=== PATIENT | male | born 1960 | race Caucasian/White ===

== ENCOUNTER 2019-12-17 21:35 | Inpatient (IN) | payer OTHER, SELFPAY ==
[~2019-12-17] VITALS: Ht 170.2 cm; Wt 95.3 kg
[2019-12-17 21:42] VITALS: BP 149/75
--- NOTE | 2019-12-17 21:47 | NUR ---
Triaged and awaiting MSE in tent.
--- NOTE | 2019-12-17 21:51 | NUR ---
PT AMBULATED TO BED 10 WITH STEADY GAIT
--- NOTE | 2019-12-17 22:10 | NUR ---
59 year old male presents to the emergency department with c/o sob, productive moist cough, sternal chest pain, myalgia, headache, n/v/d x 1 week. states that tylenol does help with the pain. 02sat 93% at triage. states exposed to a family member who tested positive for COVID. Work of breathing observed. Respirations in the low 30s. Crackles heard on bilateral bases. heart sounds even and regular. s1s2 present throughout. abdomen soft and nontender. hyperactive bowel sounds on all four quadrants. no other s/sx observed. WILMAR Guerrero made aware of pt status. Awaiting MSE. Pt placed on cardiac monitoring and pulse oximetry monitoring. Provided 3LPM oxygen via n/c and now saturations 96-97%. safety precautions in place with HOB elevated and bed lowest and locked, rails x 2. placed in isolation room bed 10 for PUI. pmhx: braulio umana
--- NOTE | 2019-12-17 22:28 | NUR ---
XRAY AT BEDSIDE
[2019-12-17 22:30] LABS: BASOPHILS % (AUTO) 0.3 % (0.0-2.0); EOSINOPHILS % (AUTO) 0.1 % (0.0-4.0); HEMATOCRIT 44.9 % (36-52); HEMOGLOBIN 15.4 g/dL (12.0-18.0); LYMPHOCYTES # (AUTO) 1.4 K/uL (2.0-11.5); LYMPHOCYTES % (AUTO) 16.2 % (20.5-51.1); MEAN CORPUSCULAR HEMOGLOBIN 29 pg (27-31); MEAN CORPUSCULAR HGB CONC 34 g/dL (33-37); MEAN CORPUSCULAR VOLUME 84.1 fL (80-94); MONOCYTES # (AUTO) 0.6 K/uL (0.8-1.0); MONOCYTES % (AUTO) 6.8 % (1.7-9.3); NEUTROPHILS # (AUTO) 6.8 K/uL (1.8-7.7); NEUTROPHILS % (AUTO) 76.6 % (42.2-75.2); PLATELET COUNT (AUTO) 252 K/uL (140-450); RED BLOOD CELL COUNT(AUTO) 5.33 MIL/uL (4.20-6.10); WHITE BLOOD COUNT (AUTO) 8.9 K/uL (4.8-10.8)
[2019-12-17 22:46] LABS: C-REACTIVE PROTEIN QUANT 9.7 mg/dL (0.0-0.9)
[2019-12-17 22:52] LABS: ALBUMIN 3.3 g/dL (3.4-5.0); CARBON DIOXIDE 29.3 mmol/L (21-32); POTASSIUM 3.3 mmol/L (3.5-5.1); PROTHROMBIN TIME 9.3 secs (10.8-13.4); TOTAL BILIRUBIN 0.5 mg/dL (0.0-1.0)
[2019-12-17 22:54] LABS: LACTATE DEHYDROGENASE 270 U/L (85-227)
[2019-12-17] MEDS ORDERED: ONDANSETRON 4 MG/2 ML VIAL ONE (23:39)
[2019-12-17] MEDS ORDERED: ONDANSETRON 4 MG ODT PO ONE (23:40)
[2019-12-18] MEDS ORDERED: ONDANSETRON 4 MG/2 ML VIAL IVP ONE
--- NOTE | 2019-12-18 | NUR ---
pt reports feeling of nausea and vomiting. requests for medications. MD Guerrero made aware.
--- NOTE | 2019-12-18 01:28 | NUR ---
pt asleep in bed, no further needs at this time. bed lowest and locked. pt connected to cardiac monitoring and pulse oximetry.
--- NOTE | 2019-12-18 02:50 | NUR ---
noticed decreasing oxygen saturation on 4LPM n/c to 93%. placed patient on simple mask 10LPM, saturations now at 98%.
--- NOTE | 2019-12-18 03:55 | NUR ---
pt asleep in bed. simple mask 10lpm. saturation 98%. no further needs at this time. call light within reach.
--- NOTE | 2019-12-18 05:56 | NUR ---
patient sleeping in bed. arousable by voice. no changes at this time.
[2019-12-18] MEDS ORDERED: APAP/BUTAL/CAFF 325/50/40 MG 1 TAB PO SCH (06:15)
[2019-12-18] MEDS ORDERED: DOCUSATE SODIUM 100 MG GELCAP PO PRN (07:25)
[2019-12-18] MEDS ORDERED: ONDANSETRON 4 MG/2 ML VIAL IVP PRN (07:25)
[2019-12-18] MEDS ORDERED: ACETAMINOPHEN 325 MG TAB PO PRN (07:25)
[2019-12-18] MEDS ORDERED: HYDROcodone/APAP 5/325 MG 1 TAB TAB PO PRN (07:25)
[2019-12-18] MEDS ORDERED: ALBUTEROL HFA MDI 90 MCG/ACTUATION 8 GM INH PRN (07:25)
--- NOTE | 2019-12-18 07:30 | NUR ---
PT RESTING IN BED, AOX4, ALL NEEDS MET AT THIS TIME. VSS ON BEDSIDE MONITOR.
--- NOTE | 2019-12-18 07:55 | NUR ---
RECEIVE REPORT FROM ER NURSE NILSON FOR CONTINUITY OF CARE, PT IS STABLE, PT AAOX4 ON 10L OXYGEN VIA MASK, PT HAS RIGHT FA 18G, PT IS AMBULATORY, SKIN INTACT, OBTAIN MRSA SWAB, INTRODUCE PT TO THE ROOM, BED IN LOW POSITION, SAFETY MEASURES IN PLACE, CALL LIGHT WITHIN REACH.
[2019-12-18 08:00] VITALS: BP 110/62
[2019-12-18] MEDS ORDERED: AZITHROMYCIN 250 MG TAB PO SCH (08:00)
--- NOTE | 2019-12-18 08:05 | NUR ---
Patient will be admitted to care of DR. WELLER. Admitted to TELE. Will go to room 115. Belongings list completed. Report to CHRIS LUNA.
[2019-12-18 08:24] LABS: BASOPHILS % (AUTO) 0.3 % (0.0-2.0); EOSINOPHILS % (AUTO) 0.1 % (0.0-4.0); HEMATOCRIT 41.6 % (36-52); LYMPHOCYTES # (AUTO) 1.4 K/uL (2.0-11.5); LYMPHOCYTES % (AUTO) 15.6 % (20.5-51.1); MEAN CORPUSCULAR HEMOGLOBIN 28 pg (27-31); MEAN CORPUSCULAR HGB CONC 34 g/dL (33-37); MEAN CORPUSCULAR VOLUME 83.8 fL (80-94); MONOCYTES # (AUTO) 0.5 K/uL (0.8-1.0); MONOCYTES % (AUTO) 5.8 % (1.7-9.3); NEUTROPHILS # (AUTO) 7.1 K/uL (1.8-7.7); NEUTROPHILS % (AUTO) 78.2 % (42.2-75.2); PLATELET COUNT (AUTO) 228 K/uL (140-450); RED BLOOD CELL COUNT(AUTO) 4.96 MIL/uL (4.20-6.10); RED CELL DISTRIBUTION WIDTH 13.8 % (11.6-13.7); WHITE BLOOD COUNT (AUTO) 9.1 K/uL (4.8-10.8)
[2019-12-18] MEDS: ENOXAPARIN 40 MG/0.4 ML SYR SUBQ SCH (08:31)
[2019-12-18] MEDS: ZINC SULF 220 MG CAP PO SCH ×2 (08:34→20:56)
[2019-12-18] MEDS: VITAMIN D 400 IU TAB PO SCH (08:35)
[2019-12-18] MEDS: NACL 0.9% 1,000 ML IV SCH (08:36)
--- NOTE | 2019-12-18 08:52 | NUR ---
ADMINISTERED SCHEDULED MEDICATION, MEDICATION EDUCATION GIVEN, PT VERBALIZED UNDERSTANDING, PT TOLERATED WELL, PT IS STABLE, NO SIGNS OF DISTRESS NOTED, CALL LIGHT WITHIN REACH.
[2019-12-18 09:08] LABS: ALBUMIN 2.8 g/dL (3.4-5.0); ANION GAP 13.5 (8-16); CARBON DIOXIDE 25.2 mmol/L (21-32); CHOL/HDL RATIO 3.4 (1-4.5); CREATININE 0.9 mg/dL (0.6-1.3); FREE T4 (FREE THYROXINE) 1.06 ng/dL (0.76-1.46); MAGNESIUM 1.8 mg/dL (1.8-2.4); PHOSPHORUS 3.3 mg/dL (2.5-4.9); POTASSIUM 3.7 mmol/L (3.5-5.1); THYROID STIMULATING HORMONE 1.28 uIU/mL (0.34-3.74); TOTAL BILIRUBIN 0.4 mg/dL (0.0-1.0)
[2019-12-18 09:51] LABS: BARBITURATE, URINE NEGATIVE ng/ml (NEG <=200); BENZODIAZEPINE, URINE NEGATIVE ng/mL (NEG <=200); CANNABINOID, URINE NEGATIVE ng/mL (NEG <=50); COCAINE, URINE NEGATIVE ng/mL (NEG <=300); OPIATE, URINE NEGATIVE ng/mL (NEG <=2000); PHENCYCLIDINE SCREEN,URINE NEGATIVE ng/mL (NEG <=25)
[2019-12-18 10:04] LABS: PROTHROMBIN TIME 9.8 secs (10.8-13.4)
--- NOTE | 2019-12-18 10:37 | NUR ---
DATA CODER OPERATOR NOTE: Patient's Orientation Unable To Assess Information Provided By DOROTA COTE - Comments SW WAS UNABLE TO MEET PATIENT AT BEDSIDE DUE TO MEDICAL CONDITION. Honing Machine Operator Production, Realtionship and Phone Number DOROTA COTE [phone] Healthcare Power of Assistant Head Cashier No Does Patient Have a POLST No Identifying Problems No Social Work Triggers Is A Social Work Consult Needed No Mandate Report Filed No Explanation Of Identifying Problems PATIENT IS A 59-YEAR-OLD MALE ADMITTED FOR PRESUMED COVID AND HYPOXIA. PATIENT HAS NO PERTINENT PMHX. Admitted From Home Pre-Admission Level Of Functioning Status Independent/Ambulatory Prior Resources/Services Used In Last 12 Months No Prior Resources Used Prior DME No Prior DME Used Living Situation Lives With Family House Patient Had Caregiver No Home Support No Caregiver Issues Financial Issues No Known Financial Issue Referral To The Financial Counselor Needed No Factors/Needs No D/C Needs Identified Pt/Rep Participated In Discharge Plan Yes Patient/Family Agress With Discharge Plan Yes Discharge Plan Comments TENTATIVE DISCHARGE PLAN IS FOR PATIENT TO RETURN HOME. DC Plan Status Initiated
--- NOTE | 2019-12-18 11:50 | NUR ---
PT TALKING TO DR HERMAN, PT IS STABLE, NO SIGNS OF DISTRESS NOTED, CALL LIGHT WITHIN REACH.
[2019-12-18 12:00] VITALS: BP 101/42
--- NOTE | 2019-12-18 14:40 | NUR ---
CARDIO TELEMONITOR SHOWED HR OF 46 WITH BIGEMINY, ASSESS PT AND HR 72, BP 110/54, PT DENIES ANY SYMPTOMS, PT STATES HIS ONLY DISCOMFORT IS HIS COUGH OTHERWISE PT IS OKAY, WILL CONTINUE TO MONITOR. CALL LIGHT WITHIN REACH.
--- NOTE | 2019-12-18 15:02 | NUR ---
PT ON HIS CELLPHONE TALKING TO SOMEONE, PT IS STABLE, NO SIGNS OF DISTRESS NOTED, CALL LIGHT WITHIN REACH
--- NOTE | 2019-12-18 15:06 | NUR ---
DC PLANNIN YRS OLD MALE PATIENT WAS ADMITTED FROM HOME WITH A DX OF PRESUMED COVID AND HYPOXIA. PT HAS NO MEDICAL HISTORY. CXR SHOWED PATCHY BILATERAL INFILTRATES. STARTED ON COVID TREATMENT, RT PROTOCOL , ZITHROMAX AND DECADRON PO . CONSULTED WITH PULMO AND COLORER HIDES AND SKINS FOR BIGEMINY. DC PLAN TO GO HOME WHEN STABLE CM TO FOLLOW.
[2019-12-18 16:00] VITALS: BP 127/77
--- NOTE | 2019-12-18 16:35 | NUR ---
PATIENT HAS BEEN SCREENED AND CATEGORIZED HIGH NUTRITION RISK. PATIENT WILL BE SEEN WITHIN 1-2 DAYS OF ADMISSION. 12/18/19-12/19/[address]
--- NOTE | 2019-12-18 17:00 | NUR ---
PT SITTING IN BED WATCHING TV, PT IS STABLE, NO SIGNS OF DISTRESS NOTED, PT NOW ON 2L O2 VIA NC, CALL LIGHT WITHIN REACH.
--- NOTE | 2019-12-18 19:05 | NUR ---
ENDORSE PT TO NIGHT NURSE FOR CONTINUITY OF CARE, PT IS STABLE
--- NOTE | 2019-12-18 19:06 | NUR ---
RECEIVED PATIENT IN STABLE CONDITION FROM AM SHIFT NURSE FOR CONTINUITY OF CARE. TELE PATIENT. RESPIRATIONS EVEN, UNLABORED. CONTINUES ON O2 2L VIA NC, O2SAT 94%. NO C/O PAIN. NO S/S ACUTE DISTRESS. SKIN WARM, DRY. IV SITE TO RIGHT FOREARM 18G PATENT/INTACT, INFUSING FLUIDS WELL. PLAN OF CARE DISCUSSED WITH PATIENT. CALL LIGHT WITHIN REACH. ISOLATION PRECAUTIONS OBSERVED BY ALL STAFF.
[2019-12-18 20:00] VITALS: BP 129/69
--- NOTE | 2019-12-18 21:40 | NUR ---
DUE MEDS GIVEN. PATIENT IS IN STABLE CONDITION. NO C/O PAIN. NO S/S ACUTE DISTRESS. CALL LIGHT WITHIN REACH. SAFETY PRECAUTIONS IN PLACE. ISOLATION PRECAUTIONS OBSERVED BY ALL STAFF.
--- NOTE | 2019-12-18 22:48 | NUR ---
LAB CALLED AND PATIENT IS COVID+. INFORMED WITH NO NEW ORDERS.
--- NOTE | 2019-12-18 23:20 | NUR ---
PATIENT TALKING ON CELLPHONE WITH FAMILY. NO C/O PAIN. NO S/S ACUTE DISTRESS. CALL LIGHT WITHIN REACH.
[2019-12-19] VITALS: BP 120/52
--- NOTE | 2019-12-19 01:00 | NUR ---
LAB GAVE RESULT FOR SARS-COV-2 OROPHARNGEAL POSITIVE. RESULT COPY WILL FORWARD TO HOUSE SUP ALEAH AND INFECTION CONTROL BOX.
--- NOTE | 2019-12-19 01:12 | NUR ---
PATIENT RESTING COMFORTABLY IN BED. NO C/O PAIN. NO S/S ACUTE DISTRESS. CALL LIGHT WITHIN REACH. ISOLATION PRECAUTIONS OBSERVED BY ALL STAFF.
[2019-12-19] MEDS: NACL 0.9% 1,000 ML IV SCH ×2 (03:24→11:08)
--- NOTE | 2019-12-19 03:47 | NUR ---
MADE ROUNDS. PATIENT CONTINUES IN STABLE CONDITION. NO C/O PAIN. NO S/S ACUTE DISTRESS. CALL LIGHT WITHIN REACH. ISOLATION PRECAUTIONS OBSERVED BY ALL STAFF.
[2019-12-19 04:00] VITALS: BP 107/59
--- NOTE | 2019-12-19 05:45 | NUR ---
PATIENT IS AWAKE AND IN STABLE CONDITION. NO C/O PAIN. NO S/S ACUTE DISTRESS. CALL LIGHT WITHIN REACH. ISOLATION PRECAUTIONS OBSERVED BY ALL STAFF.
--- NOTE | 2019-12-19 07:20 | NUR ---
ENDORSED PATIENT IN STABLE CONDITION TO AM SHIFT NURSE FOR CONTINUITY OF CARE.
--- NOTE | 2019-12-19 07:21 | NUR ---
RECEIVED PATIENT IN STABLE CONDITION FROM PM SHIFT NURSE AT BEDSIDE FOR CONTINUITY OF CARE. TELE PATIENT. RESPIRATIONS EVEN, UNLABORED. O2 2L VIA NC, O2SAT 94%. NO C/O PAIN. NO S/S ACUTE DISTRESS. SKIN WARM, DRY. IV SITE TO RIGHT FOREARM 18G PATENT/INTACT, INFUSING FLUIDS WELL. PLAN OF CARE DISCUSSED WITH PATIENT. CALL LIGHT WITHIN REACH. ISOLATION PRECAUTIONS OBSERVED BY ALL STAFF.
[2019-12-19 08:00] VITALS: BP 125/57
[2019-12-19] MEDS: VITAMIN D 400 IU TAB PO SCH (08:02)
[2019-12-19] MEDS: AZITHROMYCIN 250 MG TAB PO SCH (08:02)
[2019-12-19] MEDS: ENOXAPARIN 40 MG/0.4 ML SYR SUBQ SCH (08:03)
[2019-12-19] MEDS: ZINC SULF 220 MG CAP PO SCH ×2 (08:03→20:21)
--- NOTE | 2019-12-19 08:04 | NUR ---
ORDERED MEDICATIONS GIVEN. PT HAS NO COMPLAINTS AT THIS TIME. WILL CONTINUE TO MONITOR PATIENT.
--- NOTE | 2019-12-19 11:09 | NUR ---
(12/19/19) RD INITIAL ASSESSMENT COMPLETED PLEASE REFER TO NUTRITION ASSESSMENT UNDER CARE ACTIVITY FOR ESTIMATED NUTRITIONAL NEEDS. RD RECOMMENDATIONS: 1. CONTINUE ON REGULAR DIET TOLERATED. 2. CONSULT RDN PRN. 3. RD WILL F/U 3-5 DAYS; MODERATE RISK. GABRIEL GONZALEZ MS, RDN
[2019-12-19 11:55] VITALS: BP 128/58
--- NOTE | 2019-12-19 12:45 | NUR ---
PATIENT RESTING COMFORTABLY IN BED. NO C/O PAIN. NO S/S ACUTE DISTRESS. CALL LIGHT WITHIN REACH. ISOLATION PRECAUTIONS OBSERVED BY ALL STAFF.
--- NOTE | 2019-12-19 14:35 | NUR ---
DR CHRISTINE IN TO SEE THE PATIENT.
[2019-12-19 16:00] VITALS: BP 126/59
--- NOTE | 2019-12-19 16:30 | NUR ---
PATIENT RESTING COMFORTABLY IN BED. NO C/O PAIN. NO S/S ACUTE DISTRESS. CALL LIGHT WITHIN REACH. ISOLATION PRECAUTIONS OBSERVED BY ALL STAFF.
--- NOTE | 2019-12-19 19:05 | NUR ---
REPORT GIVEN TO COIL REPAIR TECHNICIAN NURSE. PATIENT IN STABLE CONDITION.
--- NOTE | 2019-12-19 19:25 | NUR ---
BEDSIDE REPORT WAS RECEIVED FROM DAY SHIFT NURSE FOR CONTINUITY OF CARE. PT IS A&O X 4. AWAKE AND ALERT. PT IS ON 1L NC WITH O2 SAT AT 91%. PT IS SR ON TELE MONITORING. SKIN IS WARM, DRY, AND INTACT. PT IS CONTINENT WITH URINAL AT THE BEDSIDE. LAST BM WAS TODAY ON THE AM SHIFT. BOWEL SOUNDS ARE ACTIVE IN ALL QUADRANTS. LUNG SOUNDS ARE DIMINISHED BILATERALLY. BREATHING IS REGULAR AND UNLABORED. IV IS IN THE RIGHT FOREARM 18 GAUGE RUNNING NS AT 50 ML PER HOUR. PT IS COVID POSITIVE AND DROPLET PRECAUTIONS ARE IN PLACE. BED IS IN LOWEST POSITION AND CALL LIGHT IS WITHIN REACH. PLAN OF CARE DISCUSSED.
[2019-12-19 20:00] VITALS: BP 122/68
--- NOTE | 2019-12-19 21:00 | NUR ---
PT IS AWAKE AND ALERT. A& O X4. ON 1L O2 ON NC. PT O2 SAT IS 94% AND BREATHING IS UNLABORED. PT ANSWERS APPROPRIATELY AND STATES HE WILL SLEEP SOON. WILL CONTINUE TO MONITOR.
--- NOTE | 2019-12-19 22:57 | NUR ---
PT IS AWAKE AND WATCHING TV IN SEMI FOWLERS POSITION. PT IS STABLE AT THIS TIME AND NEEDS ARE MET. WILL CONTINUE TO MONITOR.
[2019-12-20] VITALS: BP 136/76
--- NOTE | 2019-12-20 00:30 | NUR ---
PT IS ASLEEP AND RESTING COMFORTABLY IN LEFT LATERAL POSITION. PT AWOKE BRIEFLY AND STATED HE HAS GOTTEN A GOOD SLEEP SINCE HE CAME TO THE HOSPITAL. O2 SAT IS 94% ON 1L O2 NC. NO SIGNS OF DISTRESS AT THIS TIME.
--- NOTE | 2019-12-20 02:27 | NUR ---
PT REPOSITIONED SELF IN BED. PT DENIED NEEDING TO USE THE RESTROOM. BREATHING IS UNLABORED AND COUGHING IS NOT PRESENT CURRENTLY. ALL NEEDS ARE MET.
[2019-12-20 04:00] VITALS: BP 116/67
--- NOTE | 2019-12-20 05:00 | NUR ---
O2 SAT IS 95% ON 1L O2 NC. BREATHING IS UNLABORED. PT APPEARS TO BE COMFORTABLE. SLEPT MOST OF THE NIGHT. NO DISTRESS NOTED.
[2019-12-20] MEDS: NACL 0.9% 1,000 ML IV SCH (06:35)
--- NOTE | 2019-12-20 06:48 | NUR ---
PT IS LAYING IN PRONE POSITION WITH PILLOWS SUPPORTING CHEST. BREATHING IS UNLABORED. O2 SAT IS 91% AND HR IS 99. NO DISTRESS NOTED AND NO SIGNS OF PAIN.
--- NOTE | 2019-12-20 06:51 | NUR ---
PT IS STABLE AT THIS TIME, WILL ENDORSE TO DAY SHIFT NURSE FOR CONTINUITY OF CARE. WILL DISCUSS PLAN OF CARE TO DAY SHIFT NURSE.
--- NOTE | 2019-12-20 07:21 | NUR ---
RECEIVED ENDORSEMENT FROM VIDEO GAME DESIGNER NURSE, A CASE OF PRESUMED COVID POSITIVE + HYPOXIA. AWAKE, ALERT, ORIENTEDX4, BREATHING SPONTANEOUSLY WITH O2 AT 1L/MIN VIA NC, NOT IN DISTRESS NOTED. WITH ONGOING IV FLUID WITH 0.9%NS AT 50ML/H INFUSING WELL AT RT FOREARM G18, NO INFILTRATION NOTED.
[2019-12-20 07:44] LABS: BASOPHILS % (AUTO) 0.1 % (0.0-2.0); HEMATOCRIT 39.6 % (36-52); HEMOGLOBIN 13.2 g/dL (12.0-18.0); LYMPHOCYTES # (AUTO) 1.6 K/uL (2.0-11.5); LYMPHOCYTES % (AUTO) 19.2 % (20.5-51.1); MEAN CORPUSCULAR HEMOGLOBIN 28 pg (27-31); MEAN CORPUSCULAR HGB CONC 33 g/dL (33-37); MEAN CORPUSCULAR VOLUME 84.9 fL (80-94); MONOCYTES # (AUTO) 0.8 K/uL (0.8-1.0); MONOCYTES % (AUTO) 9.2 % (1.7-9.3); NEUTROPHILS # (AUTO) 6.1 K/uL (1.8-7.7); NEUTROPHILS % (AUTO) 71.5 % (42.2-75.2); PLATELET COUNT (AUTO) 280 K/uL (140-450); RED BLOOD CELL COUNT(AUTO) 4.67 MIL/uL (4.20-6.10); WHITE BLOOD COUNT (AUTO) 8.6 K/uL (4.8-10.8)
[2019-12-20 08:00] VITALS: BP 140/71
[2019-12-20 08:40] LABS: ALBUMIN 2.6 g/dL (3.4-5.0); ANION GAP 11.2 (8-16); CARBON DIOXIDE 26.3 mmol/L (21-32); CREATININE 0.9 mg/dL (0.6-1.3); MAGNESIUM 1.7 mg/dL (1.8-2.4); PHOSPHORUS 3.2 mg/dL (2.5-4.9); POTASSIUM 3.5 mmol/L (3.5-5.1); TOTAL BILIRUBIN 0.4 mg/dL (0.0-1.0)
[2019-12-20] MEDS: ENOXAPARIN 40 MG/0.4 ML SYR SUBQ SCH (09:13)
--- NOTE | 2019-12-20 09:15 | NUR ---
CALLED DR. IRVIN CISNEROS FOR CLARIFICATIONON RT REQUEST FOR SERVICE "PLEASE GIVE ALBUTEROL MDI" GIVE ONCE ORDER? CURRENT ORDER Q4PRN FOR SOB/WHEEZE NEED FREQUENCY CHANGED TO SCHEDULED FOR CONSISTENT INTERVENTION
[2019-12-20] MEDS: VITAMIN D 400 IU TAB PO SCH (09:17)
[2019-12-20] MEDS: AZITHROMYCIN 250 MG TAB PO SCH (09:18)
[2019-12-20] MEDS: ZINC SULF 220 MG CAP PO SCH ×2 (09:18→20:32)
--- NOTE | 2019-12-20 09:28 | NUR ---
FULLY AWAKE, NOT IN DISTRESS NOTED. DUE MEDICATION GIVEN, TOLERATED WELL. SAFETY MEASURES IN PLACE.
[2019-12-20] MEDS: ALBUTEROL HFA MDI 90 MCG/ACTUATION 8 GM INH SCH ×3 (11:45→21:37)
[2019-12-20 12:00] VITALS: BP 136/69
--- NOTE | 2019-12-20 12:05 | NUR ---
VITAL SIGNS TAKEN AND RECORDED, WITH IN NORMAL RANGE, STILL WITH SHORTNESS OF BREATHE CLAIMED. ON O2 AT 1L/MIN SATURATING AT 94%.CONTINUE MONITOR
--- NOTE | 2019-12-20 14:02 | NUR ---
AWAKE AND WATCHING TV, VERBALIZED MINIMAL SOB, NOT IN DISTRESS NOTED.
[2019-12-20 16:00] VITALS: BP 139/77
--- NOTE | 2019-12-20 16:11 | NUR ---
MAGNESIUM LEVEL-1.7, DR. CISNEROS INFORMED IN THE UNIT TO ORDER PRN REPLACEMENT.
[2019-12-20] MEDS ORDERED: MAGNESIUM OXIDE 400 MG TAB PO PRN (16:20)
--- NOTE | 2019-12-20 17:41 | NUR ---
MAGNESIUM 400MG ORDERED PRN GIVEN, STILL ON O2 AT 1L/MIN VIA NC AND SATURATING AT 95-96%. OCCASIONAL DRY COUGH NOTED.CONTINUE MONITOR
--- NOTE | 2019-12-20 19:14 | NUR ---
ENDORSED TO DOCK OPERATIONS SUPERVISOR NURSE FOR CONTINUITY OF CARE IN STABLE CONDITION, NOT IN DISTRESS.
--- NOTE | 2019-12-20 19:15 | NUR ---
RECEIVED REPORT FROM AM NURSE. PATIENT IS IN STABLE CONDITION, SITTING ON THE BED AND WATCHING TV. PATIENT IS ON 1L 02 VIA NC. RESPIRATIONS EVEN AND UNLABORED. PATIENT IS A/OX 4. CALL LIGHT IS WITHIN REACH. DISCUSSED PLAN OF CARE WITH PATIENT. SAFETY PRECAUTIONS IN PLACE. ALL STAFF TO OBSERVE ISOLATION PRECAUTIONS. WILL CONTINUE TO MONITOR.
[2019-12-20 20:00] VITALS: BP 116/82
--- NOTE | 2019-12-20 20:58 | NUR ---
ADMINISTERED SCHEDULED MEDICATION. PATIENT IS IN STABLE CONDITION. NO SIGNS OF DISTRESS NOTED. PATIENT INQUIRED ABOUT HIS BREATHING TREATMENT. RT NOTIFIED. SAFETY PRECAUTIONS IN PLACE. WILL CONTINUE TO MONITOR.
--- NOTE | 2019-12-20 23:15 | NUR ---
PATIENT IS IN STABLE CONDITION. WILL CONTINUE TO MONITOR.
--- NOTE | 2019-12-21 01:23 | NUR ---
PATIENT IS SLEEPING. VISIBLE CHEST RISE NOTED. WILL CONTINUE TO MONITOR.
[2019-12-21 04:00] VITALS: BP 137/77
--- NOTE | 2019-12-21 05:14 | NUR ---
PATIENT WEENED OFF 02 AND SATURATING AT 97%. NO SIGNS OF DISTRESS NOTED. WILL CONTINUE TO MONITOR.
[2019-12-21] MEDS: ALBUTEROL HFA MDI 90 MCG/ACTUATION 8 GM INH SCH ×3 (06:00→23:57)
--- NOTE | 2019-12-21 07:00 | NUR ---
RECEIVED REPORT FROM ANTON, RN. C/O SOB, GENERALIZED WEAKNESS. DX: COVID +, HYPOXIA. HX: HTN, RT FOREARM 18 RUNNING NS AT 50MLS. O2 RA: 97%. SKIN INTACT. MONITOR MG LEVELS, MONITOR O2 SAT. CALL RT FOR BREATHING TX.
--- NOTE | 2019-12-21 07:13 | NUR ---
GAVE TO REPORT TO AM NURSE. PATIENT IS IN STABLE CONDITION.
[2019-12-21 07:18] LABS: BASOPHILS % (AUTO) 0.1 % (0.0-2.0); EOSINOPHILS % (AUTO) 0.1 % (0.0-4.0); HEMATOCRIT 39.5 % (36-52); LYMPHOCYTES # (AUTO) 1.6 K/uL (2.0-11.5); LYMPHOCYTES % (AUTO) 18.9 % (20.5-51.1); MEAN CORPUSCULAR HEMOGLOBIN 28 pg (27-31); MEAN CORPUSCULAR HGB CONC 33 g/dL (33-37); MONOCYTES # (AUTO) 0.8 K/uL (0.8-1.0); MONOCYTES % (AUTO) 9.3 % (1.7-9.3); NEUTROPHILS # (AUTO) 6.1 K/uL (1.8-7.7); NEUTROPHILS % (AUTO) 71.6 % (42.2-75.2); PLATELET COUNT (AUTO) 332 K/uL (140-450); RED BLOOD CELL COUNT(AUTO) 4.65 MIL/uL (4.20-6.10); RED CELL DISTRIBUTION WIDTH 13.7 % (11.6-13.7); WHITE BLOOD COUNT (AUTO) 8.5 K/uL (4.8-10.8)
[2019-12-21 08:00] VITALS: BP 157/85
[2019-12-21 08:40] LABS: ALBUMIN 2.6 g/dL (3.4-5.0); ANION GAP 10.4 (8-16); CREATININE 0.9 mg/dL (0.6-1.3); POTASSIUM 3.4 mmol/L (3.5-5.1); TOTAL BILIRUBIN 0.4 mg/dL (0.0-1.0)
[2019-12-21] MEDS: ENOXAPARIN 40 MG/0.4 ML SYR SUBQ SCH (09:13)
[2019-12-21] MEDS: AZITHROMYCIN 250 MG TAB PO SCH (09:14)
[2019-12-21] MEDS: ZINC SULF 220 MG CAP PO SCH ×2 (09:15→22:20)
[2019-12-21] MEDS: VITAMIN D 400 IU TAB PO SCH (09:15)
--- NOTE | 2019-12-21 09:30 | NUR ---
PASSED MEDICATIONS TO PT. PT TOLERATED WELL.
[2019-12-21] MEDS: BENZONATATE 100 MG CAPLF PO PRN ×2 (09:39→18:36)
--- NOTE | 2019-12-21 11:00 | NUR ---
GAVE PT COUGH MEDICATION. WILL CONTINUE TO MONITOR
--- NOTE | 2019-12-21 11:30 | NUR ---
REPLACED NS. FLUIDS RUNNING AR 50MLS. WILL CONTINUE TO MONITOR.
[2019-12-21] MEDS: NACL 0.9% 1,000 ML IV SCH (11:49)
[2019-12-21 12:00] VITALS: BP 123/79
[2019-12-21 16:00] VITALS: BP 113/78
--- NOTE | 2019-12-21 17:30 | NUR ---
GAVE PT COUGH MEDICATIONS. PT TOLERATED WELL. WILL CONTINUE TO MONITOR
--- NOTE | 2019-12-21 19:30 | NUR ---
TRANSFER OF CARE TO PM, RN. NO SIGNS OF DISTRESS. PT RESTING IN BED AWAKE. RESPIRATIONS EVEN AND UNLABORED. VS STABLE
--- NOTE | 2019-12-21 19:30 | NUR ---
RECEIVED PT AAOX4 , NID , O2 SAT .WNL . IV SITE INTACT AND PATENT . SAFETY MEASURES IN PLACE . ON TELE MONITOR . PLAN OF CARE DISCUSSED AND VERBALIZED UNDERSTANDING , DENIES ANY PAIN . WILL CONT. TO MONITOR .
[2019-12-21 20:00] VITALS: BP 110/66
--- NOTE | 2019-12-21 22:00 | NUR ---
NO COMPLAIN MADE , O2 SAT WNL .
[2019-12-22] VITALS: BP 111/60
--- NOTE | 2019-12-22 | NUR ---
MADE ROUNDS , NO S/SX OF ACUTE DISTRESS NOTED , O2 SAT WNL .
--- NOTE | 2019-12-22 02:00 | NUR ---
SLEEPING - O2 SAT WNL .
[2019-12-22 04:00] VITALS: BP 110/65
--- NOTE | 2019-12-22 04:00 | NUR ---
MADE ROUNDS , NO S/SX OF ACUTE DISTRESS NOTED AT THIS TIME , O2 SAT WNL
[2019-12-22] MEDS: ALBUTEROL HFA MDI 90 MCG/ACTUATION 8 GM INH SCH ×2 (06:00→13:43)
--- NOTE | 2019-12-22 06:00 | NUR ---
MADE ROUNDS , NO COMPLAIN MADE . O2 SAT WNL .
--- NOTE | 2019-12-22 07:10 | NUR ---
ENDORSED TO AM SHIFT - PT- STABLE .
--- NOTE | 2019-12-22 07:10 | NUR ---
RECEIVED PATIENT FROM SENIOR MOBILE WEB DEVELOPER NURSE FOR CONTINUITY OF CARE. AAOX4. ASLEEP AND IN BED. RESPIRATIONS EVEN AND UNLABORED ON ROOM AIR WITH SAO2 AT 96%, NO SIGNS OF DISTRESS NOTED. PT IS SB ON TELE MONITORING, ASYMPTOMATIC. SKIN IS WARM, DRY, AND INTACT. PT IS CONTINENT WITH URINAL AT THE BEDSIDE. IV SITE ON THE RIGHT FOREARM 18 GAUGE RUNNING NS AT 50 ML PER HOUR. DROPLET ISOLATION OBSERVED BY ALL STAFF. SAFETY PRECAUTIONS IN PLACE. CALL LIGHT IS WITHIN REACH. PLAN OF CARE DISCUSSED AND PATIENT VERBALIZES UNDERSTANDING. WILL CONTINUE TO MONITOR.
[2019-12-22 07:27] LABS: ALBUMIN 2.6 g/dL (3.4-5.0); ANION GAP 14.5 (8-16); CARBON DIOXIDE 24.9 mmol/L (21-32); CREATININE 0.9 mg/dL (0.6-1.3); MAGNESIUM 1.9 mg/dL (1.8-2.4); PHOSPHORUS 3.7 mg/dL (2.5-4.9); POTASSIUM 3.4 mmol/L (3.5-5.1); TOTAL BILIRUBIN 0.3 mg/dL (0.0-1.0)
[2019-12-22 07:30] LABS: BASOPHILS % (AUTO) 0.1 % (0.0-2.0); EOSINOPHILS % (AUTO) 0.1 % (0.0-4.0); HEMATOCRIT 39.8 % (36-52); HEMOGLOBIN 13.5 g/dL (12.0-18.0); LYMPHOCYTES # (AUTO) 1.8 K/uL (2.0-11.5); LYMPHOCYTES % (AUTO) 21.1 % (20.5-51.1); MEAN CORPUSCULAR HEMOGLOBIN 29 pg (27-31); MEAN CORPUSCULAR HGB CONC 34 g/dL (33-37); MEAN CORPUSCULAR VOLUME 84.6 fL (80-94); MONOCYTES # (AUTO) 0.9 K/uL (0.8-1.0); MONOCYTES % (AUTO) 10.3 % (1.7-9.3); NEUTROPHILS % (AUTO) 68.4 % (42.2-75.2); PLATELET COUNT (AUTO) 364 K/uL (140-450); RED BLOOD CELL COUNT(AUTO) 4.71 MIL/uL (4.20-6.10); RED CELL DISTRIBUTION WIDTH 13.6 % (11.6-13.7); WHITE BLOOD COUNT (AUTO) 8.8 K/uL (4.8-10.8)
[2019-12-22 08:00] VITALS: BP 152/48
--- NOTE | 2019-12-22 08:48 | NUR ---
MORNING MEDICATIONS GIVEN. NO SIGNS OF DISTRESS NOTED. V/S TAKEN AND IS WNL. WILL CONTINUE TO MONITOR.
[2019-12-22] MEDS: VITAMIN D 400 IU TAB PO SCH (08:49)
[2019-12-22] MEDS: ZINC SULF 220 MG CAP PO SCH (08:49)
[2019-12-22] MEDS: AZITHROMYCIN 250 MG TAB PO SCH (08:49)
[2019-12-22] MEDS: ENOXAPARIN 40 MG/0.4 ML SYR SUBQ SCH (09:20)
[2019-12-22] MEDS: NACL 0.9% 1,000 ML IV SCH (11:27)
[2019-12-22 12:00] VITALS: BP 141/69
--- NOTE | 2019-12-22 12:45 | NUR ---
V/S TAKEN AND IS WNL. PATIENT VERBALIZES NO PAIN. INFORMED PATIENT OF D/C ORDERS. WILL CONTINUE TO MONITOR.
[2019-12-22] MEDS ORDERED: BENZ-196 PO (13:32)
[2019-12-22] MEDS ORDERED: AZIT250T3 PO (13:32)
[2019-12-22] MEDS ORDERED: DEC4 PO (13:32)
[2019-12-22] MEDS ORDERED: ALBU0.0912 IH (13:32)
[2019-12-22] MEDS ORDERED: POTASSIUM CHLORIDE 10 MEQ TABER PO SCH (14:00)
[2019-12-22 15:17] VITALS: BP 141/69
--- NOTE | 2019-12-22 15:20 | NUR ---
DISCHARGE INSTRUCTIONS GIVEN, COVID HANDOUT (10 WAYS TO MANAGE RESPIRATORY SYMPTOMS, NUTRITION, AND HOME ISOLATION) GIVEN TO PATIENT. PATIENT VERBALIZES UNDERSTANDING. NO SIGNS OF DISTRESS NOTED, V/S WNL. IV SITES REMOVED. WILL CONTINUE TO MONITOR.
--- NOTE | 2019-12-22 15:40 | NUR ---
PATIENT IS DISCHARGED TO HOME WITH DAUGHTER. DISCHARGE INSTRUCTIONS GIVEN AND PATIENT VERBALIZES UNDERSTANDING. IV SITE, TELE MONITOR AND ARMBANDS REMOVED. PATIENT ABLE TO AMBULATE TOWARDS LOBBY.
== END 2019-12-22 15:40 | disposition home or self-care (01) | DRG 177 ==
LOC: MED 21:35 → MTU 12-18 00:10
PROVIDERS: ADMIT Family Medicine; ATTEND Family Medicine
DX: U07.1 COVID-19 (principal); E43 Unspecified severe protein-calorie malnutrition; J12.9 Viral pneumonia, unspecified; J96.01 Acute respiratory failure with hypoxia; E87.6 Hypokalemia; E66.9 Obesity, unspecified; I49.9 Cardiac arrhythmia, unspecified; R73.03 Prediabetes; Z68.32 Body mass index [BMI] 32.0-32.9, adult
CPT/HCPCS: 36415; 71045; 80053; 80305; 82150; 82550; 82728; 83036; 83605; 83615; 83690; 83735; 83880; 84100; 84439; 84443; 84484; 85025; 85379; 85610; 85651; 85730; 86140; 87040; 87081; 87804; 93005; 96374; 99285; J0696; J1650; J2405; J7030; J7060; Q0092; U0003-CS